=== PATIENT | female | born 1985 | race Caucasian/White ===

== ENCOUNTER 2016-11-15 06:45 | Inpatient (IN) | payer OTHER ==
[~2016-11-15] VITALS: Ht 167.6 cm; Wt 92.5 kg
[2016-11-15] MEDS ORDERED: LR 1,000 ML IV SCH (07:15)
[2016-11-15] MEDS ORDERED: OXYTOCIN/NORMAL SALINE 1,000 ML IV SCH ×2 (07:15→13:43)
[2016-11-15] MEDS ORDERED: NALBUPHINE HCL 10 MG/ML AMP IVP PRN (07:15)
[2016-11-15] MEDS ORDERED: LR 1,000 ML IV ONE (07:15)
[2016-11-15] MEDS ORDERED: TERBUTALINE SULFATE 1 MG/ML VIAL SUBCUT ONE (07:15)
[2016-11-15 07:34] LABS: BASOPHILS % (AUTO) 0.5 % (0.0-2.0); EOSINOPHILS # (AUTO) 0.1 K/uL (0.0-0.4); EOSINOPHILS % (AUTO) 1.1 % (0.0-4.0); HEMATOCRIT 38.8 % (36-48); HEMOGLOBIN 13.7 g/dL (12.0-16.0); LYMPHOCYTES # (AUTO) 2.3 K/uL (1.0-5.5); LYMPHOCYTES % (AUTO) 24.1 % (20.5-51.5); MEAN CORPUSCULAR HEMOGLOBIN 31 pg (27-31); MEAN CORPUSCULAR HGB CONC 35 % (32-36); MEAN CORPUSCULAR VOLUME 89 fL (79.0-98.0); MONOCYTES # (AUTO) 0.4 K/uL (0.0-1.0); MONOCYTES % (AUTO) 4.2 % (1.7-9.3); NEUTROPHILS # (AUTO) 6.8 K/uL (1.8-7.7); NEUTROPHILS % (AUTO) 70.1 % (40.0-70.0); PLATELET COUNT (AUTO) 170 K/uL (130-430); RED BLOOD CELL COUNT(AUTO) 4.38 MIL/uL (4.2-6.2); RED CELL DISTRIBUTION WIDTH 14.9 % (9.0-15.0); WHITE BLOOD COUNT (AUTO) 9.6 K/uL (4.8-10.8)
[2016-11-15] MEDS ORDERED: FENT2mCg/mL-ROPIVA0.2%/NS EPID 150 ML EP ONE (08:05)
[2016-11-15] MEDS ORDERED: fentaNYL CITRATE/PF 100 MCG/2 ML AMP ONE (08:05)
[2016-11-15 09:52] VITALS: BP_SYST 130
[2016-11-15] MEDS ORDERED: OXYTOCIN/NORMAL SALINE 1,000 ML IV ONE (13:43)
[2016-11-15] MEDS ORDERED: DERMOPLAST SPRAY TP PRN (13:45)
[2016-11-15] MEDS ORDERED: MEASLES,MUMPS&RUBELLA VACC/PF 12500 UNIT/0.5 ML VIAL SUBQ PRN (13:45)
[2016-11-15] MEDS ORDERED: RHO(D) IMMUNE GLOBULIN/MALTOSE 1500 UNITS/1.3 ML (WINHRO) IM PRN (13:45)
[2016-11-15] MEDS ORDERED: HYDROCORTISONE 0.5%, 28.35 GM TOPICAL CREAM TP PRN (13:45)
[2016-11-15] MEDS ORDERED: ANUSOL 1 EA SUPP.RECT (PREPARATION H) RC PRN (13:45)
[2016-11-15] MEDS ORDERED: DOCUSATE SODIUM 100 MG CAPSULE PO PRN (13:45)
[2016-11-15] MEDS ORDERED: GLYCERIN/WITCH HAZEL (TUCKS PADS) TP PRN (13:45)
[2016-11-15] MEDS ORDERED: SENNOSIDES/DOCUSATE SODIUM 1 TAB TABLET(SENOKOT-S) PO PRN (13:45)
[2016-11-15] MEDS ORDERED: LANOLIN 7 GM OINT. TP PRN (13:45)
[2016-11-15] MEDS ORDERED: HYDROcodone/ACETAMIN 5-325 MG TAB (NORCO/ VICODIN) PO PRN (13:45)
[2016-11-15] MEDS ORDERED: METHYLERGONOVINE MALEATE 0.2 MG TABLET PO PRN (13:45)
[2016-11-15] MEDS ORDERED: ROPIVACAINE 40 MG/20 ML AMP EP ONE (14:00)
[2016-11-15] MEDS: IBUPROFEN 600 MG TABLET PO SCH ×2 (17:49→23:37)
[2016-11-15] MEDS ORDERED: TEMAZEPAM 15 MG CAPSULE PO PRN (21:00)
[2016-11-15] MEDS: OXYCODONE/ACETAMINOPHEN 5-325 TABLET PO PRN (23:40)
[2016-11-16] MEDS: IBUPROFEN 600 MG TABLET PO SCH ×4 (06:10→23:48)
[2016-11-16 06:43] LABS: BASOPHILS % (AUTO) 0.1 % (0.0-2.0); EOSINOPHILS # (AUTO) 0.1 K/uL (0.0-0.4); EOSINOPHILS % (AUTO) 1.2 % (0.0-4.0); HEMATOCRIT 38.8 % (36-48); HEMOGLOBIN 13.3 g/dL (12.0-16.0); LYMPHOCYTES # (AUTO) 2.8 K/uL (1.0-5.5); LYMPHOCYTES % (AUTO) 25.2 % (20.5-51.5); MEAN CORPUSCULAR HEMOGLOBIN 31 pg (27-31); MEAN CORPUSCULAR HGB CONC 34 % (32-36); MEAN CORPUSCULAR VOLUME 90 fL (79.0-98.0); MONOCYTES # (AUTO) 0.4 K/uL (0.0-1.0); NEUTROPHILS # (AUTO) 7.9 K/uL (1.8-7.7); NEUTROPHILS % (AUTO) 69.5 % (40.0-70.0); PLATELET COUNT (AUTO) 169 K/uL (130-430); RED CELL DISTRIBUTION WIDTH 15.1 % (9.0-15.0); WHITE BLOOD COUNT (AUTO) 11.2 K/uL (4.8-10.8)
[2016-11-16] MEDS: OXYCODONE/ACETAMINOPHEN 5-325 TABLET PO PRN ×2 (08:05→12:07)
[2016-11-17] MEDS: IBUPROFEN 600 MG TABLET PO SCH (05:45)
[2016-11-17] MEDS: OXYCODONE/ACETAMINOPHEN 5-325 TABLET PO PRN (05:50)
== END 2016-11-17 11:00 | disposition home or self-care (01) | DRG 775 ==
LOC: SPU 06:45
PROVIDERS: ADMIT Specialist; ATTEND Specialist
PROC: 10D07Z6 Extraction of Products of Conception, Vacuum, Via Natural or Artificial Opening (ICD-10-PCS; principal; 2016-11-15)
PROC: 3E0S3CZ (ICD-10-PCS; 2016-11-15)
PROC: 00HU33Z Insertion of Infusion Device into Spinal Canal, Percutaneous Approach (ICD-10-PCS; 2016-11-15)
DX: O13.4 Gestational [pregnancy-induced] hypertension without significant proteinuria, complicating childbirth (principal); O99.214 Obesity complicating childbirth; Z3A.39 39 weeks gestation of pregnancy; Z37.0 Single live birth; Z68.32 Body mass index [BMI] 32.0-32.9, adult
CPT/HCPCS: 36415; 81002-TC; 85025; 86592; 86886; 86900; 86901; 94760; J2590; J2795; J3010; J7120